=== PATIENT | female | born 1980 | race Two or more races ===

== ENCOUNTER 2016-06-23 18:19 | Emergency (ER) | payer SELFPAY ==
[~2016-06-23] VITALS: Ht 157.5 cm; Wt 70.8 kg
[2016-06-23 18:59] VITALS: BP 118/65
--- NOTE | 2016-06-23 19:15 | PHYS DOC ---
Past Medical History Past Medical History: No Pertinent History Past Surgical History: Cholecystectomy, Alcohol Use: None Drug Use: None Adult General Chief Complaint Chief Complaint: ABSCESS HPI HPI Patient is a 35 year old female who presents with abscess. Patient has abscess on her left lower abdominal wall that has been present for one week. It is painful. It is not draining. She reports that she has had a low-grade fever. He has had an abscess in a similar location before, but she is able to pop it and it resolved by itself. She has taken some ibuprofen for pain with partial relief. No other acute complaint. Review of Systems Review of Systems Constitutional: Low grade fever Eyes: Denies change in visual acuity or eye pain HENT: Denies nasal congestion or sore throat Respiratory: Denies cough or shortness of breath Cardiovascular: Denies chest pain GI: Denies abdominal pain other than at site of abscess, nausea, vomiting, bloody stools or diarrhea : Denies dysuria or hematuria Musculoskeletal: Denies back pain or joint pain Integument: Abscess to lower abdomen Neurologic: Denies headache, focal weakness or sensory changes Current Medications Current Medications Current Medications Medications (Trade) Dose Ordered Sig/Jeremias Start Time Stop Time Status Last Admin Dose Admin Clindamycin Phosphate (Cleocin 600 Mg Premix) 50 ml @ 100 mls/hr 1X ONCE 06/23/16 19:30 06/23/16 19:59 DC 06/23/16 19:46 100 MLS/HR Iohexol (Omnipaque 300 Mg/ml) 75 ml 1X ONCE 06/23/16 19:45 06/23/16 19:46 DC 06/23/16 20:45 75 ML Lidocaine/Sodium Bicarbonate (Buffered Lidocaine 1%) 20 ml 1X ONCE 06/23/16 21:45 06/23/16 21:46 DC 06/23/16 21:45 20 ML Morphine Sulfate 4 mg 1X ONCE 06/23/16 21:30 06/23/16 21:31 DC 06/23/16 21:25 4 MG Morphine Sulfate 4 mg 4 mg 1X ONCE 06/23/16 19:30 06/23/16 19:31 DC 06/23/16 19:46 4 MG Sodium Chloride (Iv Sodium Chloride 0.9% 1000ml Bag) 1,000 ml @ 1,000 mls/hr Q1H 06/23/16 19:16 06/23/16 20:15 DC 06/23/16 19:45 1,000 MLS/HR Allergies Allergies Allergies Coded Allergies Type Severity Reaction Last Updated Verified No Known Drug Allergies 06/23/16 No Physical Exam Physical Exam Constitutional: Well developed, well nourished, no acute distress, non-toxic appearance HENT: Normocephalic, atraumatic, bilateral external ears normal Eyes: EOMI, conjunctiva normal, no discharge Neck: Normal range of motion, no stridor Cardiovascular: Heart rate normal, regular rhythm, no murmur Lungs & Thorax: Bilateral breath sounds clear to auscultation Abdomen: Bowel sounds normal, soft, non-distended; abscess to LLQ, indurated with central fluctuance, TTP around abscess Skin: Warm, dry, no erythema, no rash Extremities: No obvious deformity, no edema Neurologic: Alert and oriented X 3, no gross deficits noted Current Patient Data Vital Signs Vital Signs Date Time Temp Pulse Resp B/P Pulse Ox O2 Delivery O2 Flow Rate FiO2 06/23/16 21:25 18 96 Room Air 06/23/16 18:59 98.2 99 98.2 Lab Values Laboratory Tests Test 06/23/16 18:48 06/23/16 19:33 Urine Test Negative (NEG) White Blood Count 15.8x10^3/uL (4.0-11.0) H Red Blood Count 4.33x10^6/uL (3.50-5.40) Hemoglobin 12.2g/dL (12.0-15.5) Hematocrit 38.0% (36.0-47.0) Mean Corpuscular Volume 88fL (79-100) Mean Corpuscular Hemoglobin 28pg (25-35) Mean Corpuscular Hemoglobin Concent 32g/dL (31-37) Red Cell Distribution Width 13.3% (11.5-14.5) Platelet Count 291x10^3/uL (140-400) Neutrophils (%) (Auto) 75% (31-73) H Lymphocytes (%) (Auto) 15% (24-48) L Monocytes (%) (Auto) 8% (0-9) Eosinophils (%) (Auto) 1% (0-3) Basophils (%) (Auto) 1% (0-3) Neutrophils # (Auto) 11.9x10^3uL (1.8-7.7) H Lymphocytes # (Auto) 2.4x10^3/uL (1.0-4.8) Monocytes # (Auto) 1.2x10^3/uL (0.0-1.1) H Eosinophils # (Auto) 0.2x10^3/uL (0.0-0.7) Basophils # (Auto) 0.1x10^3/uL (0.0-0.2) Sodium Level 142mmol/L (136-145) Potassium Level 3.3mmol/L (3.5-5.1) L Chloride Level 106mmol/L (98-107) Carbon Dioxide Level 26mmol/L (21-32) Anion Gap 10 (6-14) Blood Urea Nitrogen 12mg/dL (7-20) Creatinine 0.8mg/dL (0.6-1.0) Estimated GFR (Cockcroft-Gault) 81.6 Glucose Level 98mg/dL (70-99) Calcium Level 8.7mg/dL (8.5-10.1) Laboratory Tests 06/23/16 19:33 Laboratory Tests 06/23/16 19:33 EKG EKG [] Radiology/Procedures Radiology/Procedures CT A/P: IMPRESSION Focal inflammation of the anterior abdominal wall just to the left of midline in the suprapubic region. This may represent focal cellulitis. There is a small subcutaneous 10 millimeter soft-tissue abscess. 2.4 centimeter left ovarian cyst. No free fluid. Course & Med Decision Making Course & Med Decision Making Pertinent Labs and Imaging studies reviewed. (See chart for details) Patient is 35-year-old female who presents with abscess the lower abdominal wall. Will obtain CT abdomen/pelvis to rule out intra-abdominal distention. Labs also ordered. Patient given IV fluids, pain medication, dose of clindamycin. Labs notable for leukocytosis. CT results as above. Discussed results with patient. I&D performed abscess, which was then packed. Discussed with patient that she will need to be seen again in 2 days for reevaluation of the abscess; also discussed return precautions. Patient discharged home with prescription for pain medication and antibiotics, instructions for follow-up, return precautions. Dragon Disclaimer Dragon Disclaimer This electronic medical record was generated, in whole or in part, using a voice recognition dictation system. PROCEDURE Procedure Indication: abscess Procedure: The patient was positioned appropriately. Local anesthesia was accomplished with 1% lidocaine. An incision was then made over the apex of the lesion and 3mL of bloody, purulent material was expressed. The drainage cavity was packed with sterile gauze. The patient tolerated the procedure well. Complications: none. Departure Departure Impression: Primary Impression: Abscess Disposition: 01 HOME, SELF-CARE Condition: STABLE Referrals: NO PCP (PCP) Patient Instructions: Abscess Additional Instructions: Thank you for allowing us to provide care today in the Emergency Department. Take the provided medication as directed. Use caution when taking the pain medication as it can make you drowsy. Be sure to take the full course of antibiotics. You will need to be seen again in two days to evaluate the abscess. You can return to the Emergency Department, go to Urgent Care, or see your regular doctor for this. Schedule a follow up appointment with your primary care doctor. Return promptly to the Emergency Department if you develop any new or concerning symptoms. Scripts Clindamycin Hcl 300 Mg [id number] Mg PO QID #28 CAP Prov:KENYON WILSON MD 06/23/16 Hydrocodone/Apap 5-325 (Combs 5-325 Tablet)1 Each Tablet1 Tab PO PRN Q6HRS PRN PAIN #20 TAB Prov:KENYON WILSON MD 06/23/16 KENYON WILSON MD Jun 23, 2016 19:15
[2016-06-23] MEDS ORDERED: IV NORMAL SALINE 1000ML BAG 1,000 ML IV SCH (19:16)
[2016-06-23 19:23] LABS: NEG OBC UR NEG; POS OBC UR POS
[2016-06-23] MEDS ORDERED: MORPHINE SULFATE 4 MG/ML DISP.SYRIN. IV ONE ×2 (19:30→21:30)
[2016-06-23] MEDS ORDERED: CLINDAMYCIN 600MG PREMIX 50 ML IV ONE (19:30)
[2016-06-23] MEDS ORDERED: IOHEXOL 300 MG/ML 100ML VIAL. IV ONE (19:45)
[2016-06-23 19:53] LABS: BASO # 0.1 x10^3/uL (0.0-0.2); BASO % 1 % (0-3); EOS % 1 % (0-3); HEMOGLOBIN 12.2 g/dL (12.0-15.5); LYMPH # 2.4 x10^3/uL (1.0-4.8); LYMPH % 15 % (24-48); MEAN CORPUSCULAR HEMOGLOBIN 28 pg (25-35); MEAN CORPUSCULAR HGB CONC 32 g/dL (31-37); MEAN CORPUSCULAR VOLUME 88 fL (79-100); MONO % 8 % (0-9); NEUT % 75 % (31-73); PLATELET COUNT 291 x10^3/uL (140-400); RED BLOOD COUNT 4.33 x10^6/uL (3.50-5.40); RED CELL DISTRIBUTION WIDTH 13.3 % (11.5-14.5); WHITE BLOOD COUNT 15.8 x10^3/uL (4.0-11.0)
[2016-06-23 20:27] LABS: CALCIUM 8.7 mg/dL (8.5-10.1); CREATININE 0.8 mg/dL (0.6-1.0); GFR 81.6; POTASSIUM 3.3 mmol/L (3.5-5.1)
--- NOTE | 2016-06-23 21:26 | RAD ---
PROCEDURE Knee study of the abdomen and pelvis with contrast HISTORY Abdominal pain and suprapubic area for 1 week. TECHNIQUE After IV infusion of 75 milliliters of Omnipaque 300, helical CT scanning of the abdomen and pelvis was performed. No GI contrast was administered. This may decrease the sensitivity to detect GI tract pathology. One or more of the following individualized dose reduction techniques were utilized for this study: 1. Automated exposure control 2. Adjustment of the mA and/or kV according to patient size 3. Use of iterative reconstruction technique COMPARISON None available. FINDINGS The liver and spleen and pancreas are normal. The gallbladder is surgically absent. No extrahepatic biliary ductal dilatation is seen. No adrenal mass is evident. Both kidneys are normal. No focal aneurysmal dilatation of the abdominal aorta is seen. No enlarged abdominal or pelvic lymphadenopathy is seen. Urinary bladder wall is smooth. No uterine mass is seen. There is a 2.4 centimeter left ovarian cyst. No free fluid is seen within the cul-de-sac. No obstructive bowel pattern is evident. No free air or free fluid is seen. There is inflammation within the anterior abdominal wall just to the left of midline in the suprapubic area. A tiny fluid collection with rim enhancement is seen. It measures 10 millimeters. This may represent a small subcutaneous abscess. No osteolytic process is evident. IMPRESSION Focal inflammation of the anterior abdominal wall just to the left of midline in the suprapubic region. This may represent focal cellulitis. There is a small subcutaneous 10 millimeter soft-tissue abscess. 2.4 centimeter left ovarian cyst. No free fluid. Electronically signed by: Jamshid Mullins MD (Jun 23, 2016 21:25:37)
[2016-06-23] MEDS ORDERED: LIDOCAINE 1% / SOD BICARB 8.4% 20 ML VIAL. IJ ONE (21:45)
[2016-06-23] MEDS ORDERED: HYDR-971 PO (22:12)
[2016-06-23] MEDS ORDERED: CLIN300C86 PO (22:12)
[2016-06-26] MEDS ORDERED: OXYC-323 PO (14:04)
== END 2016-06-23 22:56 | disposition home or self-care (01) ==
LOC: ER 18:19
DX: L02.211 Cutaneous abscess of abdominal wall (principal); R50.9 Fever, unspecified; Z90.49 Acquired absence of other specified parts of digestive tract
CPT/HCPCS: 10060; 36415; 74177; 80048; 81025; 85027; 96365; 96375; 96376; 99285; J2270; J3490; J7030; Q9967